=== PATIENT | female | born 1970 ===

== ENCOUNTER 2019-07-15 22:56 | Emergency (ER) | payer OTHER ==
[~2019-07-15] VITALS: Ht 162.6 cm; Wt 76.2 kg
[~2019-07-15 22:56] MED LIST: SYNTHROID125 MCG; ZANTAC150 MG
== END 2019-07-16 02:14 | disposition home or self-care (01) ==
LOC: ER 22:56
DX: S50.11XA Contusion of right forearm, initial encounter (principal); M54.2 Cervicalgia; W18.09XA Striking against other object with subsequent fall, initial encounter; Y93.89 Activity, other specified; Y92.038 Other place in apartment as the place of occurrence of the external cause; Y99.8 Other external cause status

== ENCOUNTER 2024-10-13 11:12 | Outpatient (CLI) | payer OTHER | END 2024-10-13 11:23 | disposition home or self-care (01) | LOC: SONOGRAMA 11:12 | PROVIDERS: ATTEND Physical Medicine & Rehabilitation | DX: M25.511 Pain in right shoulder (principal); M25.512 Pain in left shoulder ==